=== PATIENT | female | born 1990 | race African-American/Black ===

== ENCOUNTER 2017-09-08 08:49 | Emergency (ER) | payer BC, OTHER | END 2017-09-08 09:53 | disposition home or self-care (01) | LOC: SCSER 08:49 | DX: J01.90 Acute sinusitis, unspecified (principal); J45.909 Unspecified asthma, uncomplicated; F41.9 Anxiety disorder, unspecified; F90.9 Attention-deficit hyperactivity disorder, unspecified type; Z87.891 Personal history of nicotine dependence | CPT/HCPCS: 99283 ==

== ENCOUNTER 2018-05-06 08:18 | Emergency (ER) | payer BC, OTHER | END 2018-05-06 09:18 | disposition home or self-care (01) | LOC: SCSER 08:18 | DX: R09.81 Nasal congestion (principal); M54.6 Pain in thoracic spine; J45.909 Unspecified asthma, uncomplicated; F90.9 Attention-deficit hyperactivity disorder, unspecified type; F41.9 Anxiety disorder, unspecified; Z87.891 Personal history of nicotine dependence | CPT/HCPCS: 99283 ==